=== PATIENT | male | born 1940 | race Caucasian/White ===

== ENCOUNTER → 2016-11-21 | Outpatient (CLI) | payer MEDICARE, BC ==
[2016-11-21 15:52] LABS: BLOOD, URINE TRACE-INTACT (NEGATIVE); COLOR,URINE YELLOW (YELLOW); LEUKOCYTE ESTERASE ,URINE NEGATIVE (NEGATIVE); NITRITE,URINE NEGATIVE (NEGATIVE); UROBILINOGEN,URINE 0.2 EU/DL (NORMAL)
== END ==
LOC: EDBD 15:29 → LAB 15:29
PROVIDERS: ATTEND Urology
DX: R35.0 Frequency of micturition (principal)
CPT/HCPCS: 81003

== ENCOUNTER 2017-11-27 06:34 | Observation (INO) ==
[2017-11-27] MEDS ORDERED: SALINE FLUSH 10ml SYRINGE IVF PRN (06:42)
--- NOTE | 2017-11-27 06:54 | Emergency Department Report ---
General Adult HPI - General Chief complaint: Chest Pain Stated complaint: chest pain Time Seen by Provider: 11/27/17 06:42 Source: patient, EMS Mode of arrival: EMS Limitations: no limitations - History of Present Illness HPI narrative: 77-year-old male presents to the emergency department with the chief complaint of chest pain. Patient noted onset of discomfort in his back which radiated anteriorly to his chest and settled permanently in the anterior chest upon arrival to the emergency department. He was given sublingual nitroglycerin and fentanyl by EMS prior to arrival to the emergency department. He had no change with the nitroglycerin and the fentanyl improved his symptoms. He describes the pain as moderate. Pain is sharp and stabbing. No radiation other than those listed as above. No other complaints or associated symptoms. He was at home when his symptoms began. Symptoms have been persistent in nature since onset. Symptoms began at approximately 0530 today. - Related Data Home Medications Medication Instructions Recorded Confirmed Aspirin Chewable [ASA] 81 mg PO DAILY 11/27/17 11/27/17 Cyclobenzaprine [Flexeril] 1 tab PO TID 11/27/17 11/27/17 Meloxicam 15 mg PO DAILY 11/27/17 11/27/17 Sertraline [Zoloft] 50 mg PO BID 11/27/17 11/27/17 Allergies Allergy/AdvReac Type Severity Reaction Status Date / Time No Known Allergies Allergy Verified 11/27/17 10:17 Review of Systems Constitutional: Denies: fever, chills Eyes: Denies: eye pain, eye discharge ENT: Denies: ear pain, throat pain Cardiovascular: Reports: chest pain. Denies: palpitations Respiratory: Denies: cough, dyspnea Gastrointestinal: Reports: nausea. Denies: abdominal pain, vomiting, diarrhea Genitourinary: Denies: urgency, dysuria Musculoskeletal: Reports: back pain. Denies: arthralgia Integumentary: Denies: erythema, rash Neurological: Denies: headache, numbness, paresthesias Psychiatric: Denies: anxiety, depression Endocrine: Denies: polydipsia, polyuria Hematological/Lymphatic: Denies: easy bruising, lymphadenopathy Allergic/Immunologic: Denies: urticaria, itchy eyes [facility] Patient Stated Medical History Angina Yes Gastroesophageal Reflux Yes Disease Osteoarthritis Yes Surgical History: Multiple orthopedic surgeries Family History: Reviewed and Noncontributory. - Social History Smoking status: Never smoker Substance use type: does not use Alcohol intake frequency: does not drink Physical Exam - Limitations Limitations: no limitations - General General appearance: alert, in no apparent distress - Normal Exams: Head:: Normocephalic without trauma Eyes:: Pupils are PERRLA w/ EOMI, No scleral icterus, irritation, or foreign bodies noted ENMT:: No facial trauma, nasal exudates, pharyngeal erythema, or exudates are noted Dental: No fractured, loose, or missing teeth noted Neck:: Full range of motion, without adenopathy, JVD, bruits or thyromegaly Chest/Respirations:: Clear all escalona, with good airflow, and symmetry bilaterally Cardiovascular:: Regular rate and rhythm, without murmur or gallop, Pulses 2+ all extremities, capillary refill, <2 seconds all extremities Abdomen:: Bowel sounds positive, soft, non-tender, non-distended, no hepatosplenomegaly, masses or bruits noted Lymphatic:: No lymphadenopathy, or lymphedema noted Musculoskeletal:: No tenderness, or deformity noted, good range of motion, all extremities Integumentary:: No rashes, hives, or bruising noted, hair and nails, without abnormality Neurological:: Patient is alert, and oriented, cranial nerves, motor/sensory/ cerebellar, exams w/o gross deficits, to observation Course Vital Signs Temperature 98.7 F 11/27/17 06:35 Pulse Rate 61 11/27/17 06:35 Respiratory Rate 17 11/27/17 06:35 Blood Pressure 146/76 H 11/27/17 06:35 Pulse Oximetry 95 11/27/17 06:35 Temperature 98.7 F 11/27/17 06:35 Pulse Rate 61 11/27/17 09:00 Respiratory Rate 14 11/27/17 08:30 Blood Pressure 121/79 11/27/17 09:00 Pulse Oximetry 95 11/27/17 09:00 Medical Decision Making - [facility] Narrative Medical decision making narrative: Labs/imaging were discussed in detail with the patient and family and questions are answered. Patient was given gentle IV hydration. He was given sublingual nitroglycerin without improvement of his pain. He was given parental narcotic and antiemetic medication intravenously with improvement of symptoms. He was given aspirin 324 mg by mouth [address] chest was obtained and unremarkable. He is discussed with the serology teacher on-call Dr. Alvarez who agrees to admit the patient to his service. Patient is admitted to the service of cardiology in improved condition. No further orders from accepting physician who is in agreement with the current plan of management. Patient and family are in agreement with the current plan of management. - Differential Diagnosis ACS, Pneumothorax, aortic dissection, PE - Lab Data Result diagrams: 11/27/17 06:51 11/27/17 06:51 Lab Results 11/27/17 11/27/17 Range/Units 06:51 06:51 WBC 5.8 (4.5-11.0) T/MM3 RBC 5.40 (4.50-5.90) M/MM3 Hgb 15.5 (13.5-17.5) GM/DL Hct 47.4 (41-53) % MCV 87.8 (80-100) UM3 MCH 28.7 (26-34) UUG MCHC 32.7 (31-37) GM/DL RDW Std Deviation 51.9 H (36.9-50.2) FL Plt Count 103 L (130-400) T/MM3 MPV 11.8 (9.4-12.4) UM3 Immature Gran % (Auto) 0.2 (0.0-0.5) % Neut % (Auto) 64.4 (33-66) % Lymph % (Auto) 25.5 (23-45) % [place] % (Auto) 6.3 (0-9.0) % Eos % (Auto) 3.3 (0-4) % Baso % (Auto) 0.3 (0-2) % Neut # (Auto) 3.7 (1.8-7.7) T/MM3 Lymph # (Auto) 1.5 (1-4.8) T/MM3 [place] # (Auto) 0.4 (0-0.8) T/MM3 Eos # (Auto) 0.2 (0-0.5) T/MM3 Baso # (Auto) 0.0 (0-0.2) T/MM3 Abs Immat Gran (auto) 0.01 (0.00-0.03) T/MM3 Turbidity < 20 (0-20) Sodium 146 H (134-144) MEQ/L Potassium 4.2 (3.6-5) MEQ/L Chloride 106 (98-107) MEQ/L Carbon Dioxide 26 (22-30) MEQ/L Anion Gap 14 (5-15) meq/L BUN 22.0 H (9-20) MG/DL Creatinine 0.8 (0.8-1.5) mg/dL GFR Calculation 93 BUN/Creatinine Ratio 28 H (6-26) RATIO Glucose 134 H (75-110) MG/DL Calculated Osmolality 286 H (261-280) MOSM/KG Calcium 10.1 (8.4-10.2) MG/DL Total Bilirubin 0.70 (0.20-1.30) MG/DL Icterus Index < 2 (0-7) AST 60 H (17-59) U/L ALT 31 (1-50) U/L Alkaline Phosphatase 110 (38-126) U/L Troponin I < 0.012 (0-0.12) ng/ml Total Protein 7.4 (6.3-8.2) g/dL Albumin 4.5 (3.5-5.0) g/dL Globulin 2.9 (2.4-3.6) G/DL Albumin/Globulin Ratio 1.6 (1.1-2.2) RATIO Specimen Hemolysis < 15.0 (0-25) - Radiology Data CXR - No acute processes. CTA Aorta - No acute processes. - EKG Data EKG #1 EKG results narrative: Sinus bradycardia. 56 bpm. No STEMI. Disposition Clinical Impression: Chest pain Qualifiers: Chest pain type: unspecified Qualified Code(s): R07.9 - Chest pain, unspecified Disposition: 02 To [facility] Condition: Stable Time of Disposition: 08:30 (Admit. Dr. Alvarez. ) - Seen By: physician
--- OUTSIDE RECORDS SUMMARY | 2017-11-27 07:08 | External Medical Summary | Continuity of Care Document ---
:1940 Author Organization Via [facility] Allergies Active Description Code Type Severity Reaction Onset Reported/ Identified Relationship Clinical to Patient Status Yes No Known Drug 03/22/2012 Allergies Aller gy Yes No Known Drug N/A N/A 03/22/2012 Allergies Aller gy Yes No Known Drug 03/22/2012 Drug Aller Allergies gy Yes No Known Drug N/A N/A 03/22/2012 Drug Aller Allergies gy Yes No Known Food 03/22/2012 Food Aller Allergies gy Yes No Known Food N/A N/A 03/22/2012 Food Aller Allergies gy Yes No Known NKMA N/A N/A 03/07/2016 Medication Allergies Yes No Known Drug Unknown N/A 11/21/2016 Drug Allergy Aller gy Yes No Known Drug Unknown N/A 11/21/2016 Drug Aller Category gy Allergy Yes No Known Envir Unknown N/A 11/21/2016 Environment onmen Allergy mckayla Aller gy Yes No Known Food Unknown N/A 11/21/2016 Food Allergy Aller gy Medications Medication Packaging Start Stop Route Dosage Sig Date Date 03/08/20 Oral 15 mg 15 meloxicam(meloxicam 6 16 mg, Oral, Daily, ) 0 Refill(s) 03/19/20 Oral 100 mg 100 sertraline(sertrali 6 16 mg, Oral, qAM, 0 ne) Refill(s) 03/19/20 Oral 81 mg 81 aspirin(aspirin) 6 16 mg, Oral, Daily, 0 Refill(s) 03/08/20 Oral 10 mg 10 cyclobenzaprine(cyc 6 16 mg, Oral, TID, 0 lobenzaprine) Refill(s) 03/19/20 Oral 5 mg 5 finasteride(finaste 6 16 mg, Oral, Daily, ride) 0 Refill(s) 03/07/20 Oral 1--2 HYDROcodone-acetami 6 16 tabs, Oral, nophen([place] 5 q4hr, PRN: Pain mg-325 mg oral Moderate (4-6) tablet range dose) 2 mL 03/07/20 IV Push 4 mg 4 ondansetron(Zofran) 6 16 mg=2 mL, IV Push, q6hr, PRN: Nausea or Vomiting Sodium 1,000 mL 03/07/20 IV 75 Chloride 6 16 mL/hr, IV 0.9%(sodium chloride 0.9% 1,000 mL) 0.5 mL 03/07/20 IV Push 0.5 mg 0.5 HYDROmorphone(Dilau 6 16 mg=0.5 mL, IV did) Push, q2hr, PRN: Pain Severe (7-10) 0.5 mL 03/07/20 IV Push 0.5 mg 0.5 HYDROmorphone(Dilau 6 16 mg=0.5 mL, IV did) Push, Once 03/11/20 Oral 1,500 mg acetaminophen(aceta 6 16 1,500 mg, Oral, minophen) BID, PRN: as needed for pain, 0 Refill(s) 1,000 mL 03/07/20 IV 10 Lactated Ringers 6 16 mL/hr, IV Injection(Lactated Ringers 1,000 mL) 1 mL 03/07/20 IV Push 50 mcg 50 fentaNYL(Sublimaze) 6 16 mcg=1 mL, IV Push, Once 03/19/20 Oral 50 mg 50 sertraline(sertrali 6 16 mg, Oral, qPM, 0 ne) Refill(s) 1 tabs 03/19/20 Oral 10 mg 10 donepezil(donepezil 6 16 mg=1 tabs, Oral, 10 mg oral tablet) Daily, 0 Refill(s) 1 caps 03/19/20 Oral 0.4 mg 0.4 tamsulosin(tamsulos 6 16 mg=1 caps, Oral, in 0.4 mg oral Daily, 0 capsule) Refill(s) 1 tabs 08/25/201 08/29/20 Oral 50 mg 50 sertraline(sertrali 6 16 mg=1 tabs, Oral, ne) Bedtime (once a day) 1 tabs 03/11/20 Oral 5 mg 5 finasteride(finaste 6 16 mg=1 tabs, Oral, ride) Daily 1 caps 03/11/20 Oral 0.4 mg 0.4 tamsulosin(tamsulos 6 16 mg=1 caps, Oral, in) Daily 1 tabs 03/11/20 Oral 100 mg 100 sertraline(sertrali 6 16 mg=1 tabs, Oral, ne) qAM 1 tabs 03/11/20 Oral 10 mg 10 donepezil(donepezil 6 16 mg=1 tabs, Oral, ) Bedtime (once a day) 2 tabs 03/08/20 Oral 2 HYDROcodone-acetami 6 16 tabs, Oral, nophen([place] 5 q4hr, PRN: Pain mg-325 mg oral Moderate (4-6) tablet) Sodium 1,000 mL 03/09/20 IV 80 Chloride 6 16 mL/hr, IV 0.9%(sodium chloride 0.9% 1,000 mL) 1 mL 03/10/20 IV Push 1 mg 1 HYDROmorphone(Dilau 6 16 mg=1 mL, IV did) Push, q2hr, PRN: Pain - Breakthrough 0.4 mL 03/07/20 IV Push 0.4 mg 0.4 HYDROmorphone([place]ilau 6 16 mg=0.4 mL, IV did) Push, q5min, PRN: Pain 1 tabs 03/11/20 Oral 10 mg 10 metoclopramide(Regl 6 16 mg=1 tabs, Oral, an) q6hr, PRN: Nausea or Vomiting 1 mL 03/10/20 IV Push 2 mg 2 morphine(morphine) 6 16 mg=1 mL, IV Push, q2hr, PRN: Pain Severe (7-10) 2 mL 03/11/20 IV Push 4 mg 4 ondansetron(Zofran) 6 16 mg=2 mL, IV Push, q6hr, PRN: Nausea or Vomiting 20 mL 03/08/20 IV Push 2 g 2 ceFAZolin(ceFAZolin 6 16 g=20 mL, IV ) Push, q8hr 1 tabs 03/11/20 Oral 10 mg 10 rivaroxaban(Xarelto 6 16 mg=1 tabs, Oral, ) Daily 2 tabs 03/08/20 Oral 2 HYDROcodone-acetami 6 16 tabs, Oral, nophen([place]asgow 7.5 q4hr, PRN: Pain mg-325 mg oral Moderate (4-6) tablet) 2 tabs 03/10/20 Oral 2 HYDROcodone-acetami 6 16 tabs, Oral, nophen([place] 10 q4hr, PRN: Pain mg-325 mg oral Moderate (4-6) tablet) 1 caps 03/19/20 Oral 100 mg 100 docusate(docusate 6 16 mg=1 caps, Oral, sodium 100 mg oral BID, 0 Refill(s) capsule) 1 tabs 03/19/20 Oral 10 mg 10 rivaroxaban(Xarelto 6 16 mg=1 tabs, Oral, 10 mg oral tablet) Daily, Give daily for 20 days post hospital discharge for DVT prevention, 0 Refill(s) 03/11/20 Oral 1-2 HYDROcodone-acetami 6 16 tabs, Oral, nophen([place] 10 q4hr, not to mg-325 mg oral exceed 8 tablet) tablets/24 hours: give with food to prevent nausea, PRN: Pain Moderate (4-6), 0 Refill(s) 1 supp 03/19/20 Rectal 10 mg 10 bisacodyl(Dulcolax 6 16 mg=1 supp, Laxative 10 mg Rectal, Once, rectal suppository) PRN: Constipation, 0 Refill(s) 0.5 mL 03/08/20 IV Push 0.5 mg 0.5 HYDROmorphone(HYDRO 6 16 mg=0.5 mL, IV morphone) Push, Once 2 tabs 03/11/20 Oral 650 mg 650 acetaminophen(aceta 6 16 mg=2 tabs, Oral, minophen) q4hr, PRN: Pain Mild (1-3) 2 tabs 03/19/20 Oral 650 mg 650 acetaminophen(aceta 6 16 mg=2 tabs, Oral, minophen 325 mg q4hr, PRN: Pain oral tablet) Mild (1-3), 0 Refill(s) 03/19/20 Oral 1-2 HYDROcodone-acetami 6 16 tabs, Oral, nophen([place] 10 q4hr, not to mg-325 mg oral exceed 6 tablet) tablets/24 hours; give with food to prevent nausea, 30 tabs, 0 Refill(s) 1 caps Oral 100 mg 100 docusate(Colace) 6 mg=1 caps, Oral, BID 1 tabs Oral 4 mg 4 ondansetron(Zofran) 6 mg=1 tabs, Oral, q6hr, PRN: Nausea 1 packets Oral 17 g 17 polyethylene glycol 6 g=1 packets, 3350(MiraLax) Oral, Daily, PRN: Constipation calcium 1 tabs Oral 500 mg 500 carbonate(Tums) 6 mg=1 tabs, Oral, q4hr, PRN: GERD/Heartburn 1 tabs Oral 25 mg 25 diphenhydrAMINE(Pablito 6 mg=1 tabs, Oral, adryl) Bedtime (once a day), PRN: Insomnia 1 tabs Oral 8.6 mg 8.6 senna(Senokot) 6 mg=1 tabs, Oral, Daily, PRN: Constipation 2 tabs 03/11/20 Oral 650 mg 650 acetaminophen(aceta 6 16 mg=2 tabs, Oral, minophen) q4hr, PRN: Pain Mild (1-3) 1 tabs Oral 5 mg 5 finasteride(finaste 6 mg=1 tabs, Oral, ride) Bedtime (once a day) 1 tabs Oral 10 mg 10 donepezil(donepezil 6 mg=1 tabs, Oral, ) Bedtime (once a day) 1 tabs Oral 81 mg 81 aspirin(aspirin) 6 mg=1 tabs, Oral, Bedtime (once a day) 2 tabs 03/11/20 Oral 2 HYDROcodone-acetami 6 16 tabs, Oral, nophen([place] 10 q4hr, PRN: Pain mg-325 mg oral Moderate (4-6) tablet range dose) 1 tabs Oral 100 mg 100 sertraline(sertrali 6 mg=1 tabs, Oral, ne) qAM 1 tabs 03/31/20 Oral 10 mg 10 rivaroxaban(Xarelto 6 16 mg=1 tabs, Oral, ) Bedtime (once a day) 1 tabs Oral 50 mg 50 sertraline(sertrali 6 mg=1 tabs, Oral, ne) Bedtime (once a day) 1 caps Oral 0.4 mg 0.4 tamsulosin(Flomax) 6 mg=1 caps, Oral, Bedtime (once a day) 1 tabs 05/10/20 Oral 1 HYDROcodone-acetami 6 16 tabs, Oral, nophen([place] 7.5 q4hr, PRN: Pain mg-325 mg oral Moderate (4-6) tablet) ferrous 1 tabs Oral 325 mg 325 sulfate(ferrous 6 mg=1 tabs, Oral, sulfate) BIDWM 1 tabs Oral 10 mg 10 donepezil(donepezil 6 mg=1 tabs, Oral, 10 mg oral tablet) Bedtime (once a day), 30 tabs, 0 Refill(s) 1 tabs 03/26/20 Oral 1 HYDROcodone-acetami 6 16 tabs, Oral, nophen([place] 7.5 q4hr, for 7 mg-325 mg oral days, PRN: Pain tablet) Moderate (4-6), 42 tabs, 0 Refill(s) 1 tabs Oral 5 mg 5 finasteride(finaste 6 mg=1 tabs, Oral, ride 5 mg oral Bedtime (once a tablet) day), 30 tabs, 0 Refill(s) 1 tabs Oral 81 mg 81 aspirin(aspirin 81 6 mg=1 tabs, Oral, mg oral delayed Bedtime (once a release tablet) day), 0 Refill(s) 2 tabs Oral 650 mg 650 acetaminophen(aceta 6 mg=2 tabs, Oral, minophen 325 mg q4hr, PRN: Other oral tablet) (See Comment), 0 Refill(s) 1 caps Oral 100 mg 100 docusate(Colace 100 6 mg=1 caps, Oral, mg oral capsule) BID, 0 Refill(s) 1 tabs 04/18/20 Oral 50 mg 50 sertraline(sertrali 6 16 mg=1 tabs, Oral, ne 50 mg oral Bedtime (once a tablet) day), for 30 days, two tabs in the a.m and one tab at bedtime, 90 tabs, 0 Refill(s) 1 tabs 03/31/20 Oral 10 mg 10 rivaroxaban(Xarelto 6 16 mg=1 tabs, Oral, 10 mg oral tablet) Bedtime (once a day), for 12 days, 12 tabs, 0 Refill(s) 1 caps 03/26/20 Oral 0.4 mg 0.4 tamsulosin(Flomax 6 16 mg=1 caps, Oral, 0.4 mg oral Bedtime (once a capsule) day), for 7 days, 7 caps, 0 Refill(s) ferrous 1 tabs Oral 325 mg 325 sulfate(ferrous 6 mg=1 tabs, Oral, sulfate 325 mg (65 BIDWM, 60 tabs, mg elemental iron) 0 Refill(s) oral delayed release tablet) 1 tabs Oral 8.6 mg 8.6 senna(Senokot 8.6 6 mg=1 tabs, Oral, mg oral tablet) Daily, PRN: Constipation, 0 Refill(s) 1 packets Oral 17 g 17 polyethylene glycol 6 g=1 packets, 3350(MiraLax) Oral, Daily, PRN: Constipation, 0 Refill(s) Tablet 11/22/19 81 mg take Aspir-81 81 mg 7 17 1 (one) by Oral tablet,delayed route daily release Tablet 1 mg take finasteride 1 mg 7 1 (one) Tablet tablet by Oral route daily Blister 11/22/19 50 mg take sertraline 50 mg 7 17 1 (one) Tablet tablet by Oral route daily Blister 11/22/19 15 mg take meloxicam 15 mg 7 17 1 (one) Tablet tablet by Oral route daily Motrin Packet 10/23/19 200 mg take IB 200 mg tablet 8 18 1 (one) Tablet by Oral route daily Blister 10/23/19 20 mg take benazepril 20 mg 8 18 1 (one) Tablet tablet by Oral route daily Tablet 5 mg take cyclobenzaprine 5 8 1 (one) Tablet mg tablet by Oral route daily ASA PO 81 mg 8 DAILY PO 15 mg Meloxicam 8 DAILY Zoloft PO 100 mg BID 8 PO 10 mg TID Flexeril 8 Problems Date Dx Attending Type Code Diagnosis Diagnosed By Coded 03/22/2012 Vargas FIGUEROA, Georges 719.46 JOINT PAIN-LOWER LEG 03/22/2012 Georges Kaye MD Final 924.11 CONTUSION OF KNEE 03/22/2012 Georges Kaye MD Admitting 959.7 LOWER LEG INJURY [facility] 03/22/2012 Georges Kaye MD External E000.8 EXT CAUSE STATUS [facility] 03/22/2012 Georges Kaye MD External E029.9 ACTIVITY [facility] 03/22/2012 Georges Kaye MD External E849.0 HOME ACCIDENTS 03/22/2012 Georges Kaye MD External E885.9 FALL FROM TRIPPING [facility] 07/06/2013 Sobeida FIGUEROA, Final 873.0 OPEN WOUND OF SCALP Trevor S 07/06/2013 Sobeida FIGUEROA, 873.8 OPEN WOUND OF HEAD Trevor S [facility] 07/06/2013 Sobeida FIGUEROA, Final 959.01 HEAD INJURY NOS Trevor S 07/06/2013 Sobeida FIGUEROA, External E849.0 HOME ACCIDENTS Trevor S 07/06/2013 Sobeida FIGUEROA, External E920.8 ACC-CUTTING INSTR Trevor S [facility] 07/06/2013 Sobeida FIGUEROA, Final V06.1 DTP/DTAP VACCINE Trevor S 03/07/2016 Dart,, Norbert Admitting S72.009A 03/19/2016 Dart,, Norbert Final D62 Acute posthemorrhagic anemia 03/19/2016 Dart,, Norbert Final D69.6 Thrombocytopenia, unspecified 03/19/2016 Dart,, Norbert Final F32.9 Major depressive disorder, single episode, unspecified 03/19/2016 Dart,, Norbert Admitting M25.551 Pain in right hip 03/19/2016 Dart,, Norbert Final N40.0 Enlarged prostate without lower urinary tract symptoms 03/19/2016 Dart,, Norbert Final R00.1 Bradycardia, unspecified 03/19/2016 Dart,, Norbert Final S50.311A Abrasion of right elbow, initial encounter 03/19/2016 Dart,, Norbert Final S72.011A Unspecified intracapsular fracture of right femur, initial encounter for cl 03/19/2016 Dart,, Norbert Final S80.211A Abrasion, right knee, initial encounter 03/19/2016 Dart,, Norbert Final W01.0XXA Fall on same level from slipping, tripping and stumbling without subsequent 03/19/2016 Dart,, Norbert Final Y92.[address] in single-family (private) house as the place of occurrence of 03/19/2016 Dart,, Norbert Final Y99.0 Civilian activity done for income or pay 04/05/2016 F S72.031A Displaced midcervical fracture of right femur, initial encounter for closed fracture 05/14/2016 F S72.031D Displaced midcervical fracture of right femur, subsequent encounter for closed fracture with routine healing 08/27/2016 F M25.551 Pain in right hip 08/27/2016 F S72.031D Displaced midcervical fracture of right femur, subsequent encounter for closed fracture with routine healing 11/25/2016 ERON FARR N40.3 Nodular prostate YORDAN, Marley with lower urinary ERON H tract symptoms 11/25/2016 ERON FARR R35.0 Frequency of Marley FARR micturition ERON H 11/25/2016 ERON FARR R35.1 Nocturia GILBAUGH, H ERON H 11/25/2016 ERON FARR Z80.42 Family history of GILBAUGH, H malignant neoplasm ERON H of prostate 01/16/2017 ERON FARR N40.3 Nodular prostate GILBAUGH, H with lower urinary ERON H tract symptoms 01/16/2017 ERON FARR R35.0 Frequency of GILBAUGH, H micturition ERON H 01/16/2017 ERON FARR R35.1 Nocturia GILBAUGH, H ERON H 01/16/2017 ERON FARR R39.15 Urgency of urination GILBAUGH, H ERON H 01/16/2017 ERON FARR Z80.42 Family history of GILBAUGH, H malignant neoplasm ERON H of prostate 03/07/2017 ERON FARR N40.3 Nodular prostate GILBAUGH, H with lower urinary ERON H tract symptoms 03/07/2017 ERON FARR R35.0 Frequency of GILBAUGH, H micturition ERON H 03/07/2017 ERON FARR R35.1 Nocturia GILBAUGH, H ERON H 03/07/2017 ERON FARR R39.15 Urgency of urination GILBAUGH, H ERON H 03/25/2017 ERON FARR 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, H and reflux uropathy ERON H 03/25/2017 ERON FARR N40.1 Benign prostatic GILBAUGH, H hyperplasia with ERON H lower urinary tract symptoms 03/26/2017 ERON FARR N40.1 Benign prostatic MARK COBOSALD H hyperplasia with L lower urinary tract symptoms 03/26/2017 ERON FARR R35.0 Frequency of CESILIA COBOS H micturition L 03/26/2017 ERON FARR Z09 Encounter for PAPITO CESILIA H follow-up L examination after completed treatment for conditions other than malignant neoplasm 08/12/2017 ERON FARR N13.8 Other obstructive TEOBAUGH, H and reflux uropathy ERON 08/12/2017 ERON FARR N40.1 Benign prostatic GILBAUGH, H hyperplasia with ERON H lower urinary tract symptoms 08/12/2017 ERON FARR R35.0 Frequency of GILBAUGH, H micturition [facility] 08/12/2017 ERON FARR R35.1 Nocturia GILBAUGH, H ERON 08/12/2017 ERON FARR R39.12 Poor urinary stream TEOBAUGH, H ERON H 08/12/2017 ERON FARR R39.15 Urgency of urination TEOBAUGH, H ERON 09/17/2017 ERON FARR 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, H and reflux uropathy [facility] 09/17/2017 ERON FARR 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, H obstruction [facility] 09/17/2017 ERON FARR N39.41 Urge incontinence [facility], H ERON 09/17/2017 ERON FARR N40.1 Benign prostatic GILBAUGH, H hyperplasia with ERON Roach lower urinary tract symptoms 09/17/2017 ERON FARR N13.8 Other obstructive NABBOUT, H and reflux uropathy [facility] 09/17/2017 ERON FARR09 Encounter for NABBOUT, H follow-up [facility] examination after completed treatment for conditions other than malignant neoplasm 09/17/2017 ERON FARR Z46.6 Encounter for NABBOUT, H fitting and YEN adjustment of urinary device 11/06/2017 ERON FARR 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, H and reflux uropathy ERON 11/06/2017 ERON FARR N40.1 Benign prostatic TEOBAUGH, H hyperplasia with ERON Roach lower urinary tract symptoms 11/06/2017 ERON FARR R35.0 Frequency of GILBAUGH, H micturition ERON 11/06/2017 ERON FARR R39.15 Urgency of urination TEOBAUGH, H [facility] 11/06/2017 ERON FARR Z09 Encounter for GILBAUGH, H follow-up ERON Roach examination after completed treatment for conditions other than malignant neoplasm Procedures Code Description Performed By Performed On Replacement of 03/07/2016 [id number] Right Hip Joint, Femoral Surface with Synthetic Substitute, 58081 Pelvis AP Thang Ramos 04/05/2016 52010 Hip 1V X-Table Thang Ramos 04/05/2016 Lat 28346 Pelvis AP Norbert Santoyo 05/14/2016 95402 Hip 1V X-Table Norbert Santoyo R 05/14/2016 Lat 61056 Pelvis w/Hip Uni Norbert Santoyo R 08/27/2016 1V 63231 OFFICE OR OTHER ERON FARR 11/25/2016 OUTPATIENT VISIT FOR THE EVALUATION AND MANAGEMENT OF ANEW PATIENT, WHICH REQUIRES T 18871 OFFICE OR OTHER ERON FARR 12/17/2016 OUTPATIENT VISIT FOR THE EVALUATION AND MANAGEMENT OF ANEW PATIENT, [place] T 14202 ERON FARR 01/16/2017 CYSTOURETHROSCOPY (SEPARATE PROCEDURE) 26026 ERON FARR 02/17/2017 CYSTOURETHROSCOPY (SEPARATE PROCEDURE) 25610 PERCUTANEOUS ERON FARR 03/07/2017 IMPLANTATION OF NEUROSTIMULATOR ELECTRODES; SACRAL NERVE(TRANSFORAMINAL PLACEMENT) 20466 CONTACT LASER ERON FARR 03/25/2017 VAPORIZATION WITH OR WITHOUT TRANSURETHRAL RESECTION [place] [address] POSTOPERATIVE CESILIA COBOS 03/26/2017 FOLLOW-UP VISIT, INCLUDED IN GLOBAL SERVICE 09025 PERCUTANEOUS ERON FARR 04/07/2017 IMPLANTATION OF NEUROSTIMULATOR ELECTRODES; SACRAL NERVE(TRANSFORAMINAL PLACEMENT) 25491 URINALYSIS, BY ERON FARR 08/12/2017 DIP STICK OR TABLET REAGENT FOR BILIRUBIN, GLUCOSE,HEMOGLOBIN, KETONES, LEUKOCYTES, N 00920 OFFICE OR OTHER ERON FARR 08/12/2017 OUTPATIENT VISIT FOR THE EVALUATION AND MANAGEMENT OF ANESTABLISHED PATIENT, WHICH R 74668 URINALYSIS, BY ERON FARR 08/29/2017 DIP STICK OR TABLET REAGENT FOR BILIRUBIN, GLUCOSE,HEMOGLOBIN, KETONES, LEUKOCYTES, N 96473 OFFICE OR OTHER ERON FARR 09/04/2017 OUTPATIENT VISIT FOR THE EVALUATION AND MANAGEMENT OF ANESTABLISHED [place], [place] R 55235 ERON FARR 09/17/2017 CYSTOURETHROSCOPY, WITH INJECTION(S) FOR CHEMODENERVATION OF THE BLADDER 26827 TRANSURETHRAL ERON FARR 09/17/2017 RESECTION OF BLADDER NECK (SEPARATE PROCEDURE) 62094 POSTOPERATIVE YEN MCCLAIN 09/17/2017 FOLLOW-UP VISIT, INCLUDED IN GLOBAL SERVICE 35689 ERON FARR 10/09/2017 CYSTOURETHROSCOPY, WITH INJECTION(S) FOR CHEMODENERVATION OF THE BLADDER 44477 TRANSURETHRAL ERON FARR 10/09/2017 RESECTION OF BLADDER NECK (SEPARATE PROCEDURE) 73287 URINALYSIS, BY ERON FARR 11/06/2017 DIP STICK OR TABLET REAGENT FOR BILIRUBIN, GLUCOSE,HEMOGLOBIN, KETONES, LEUKOCYTES, N 22905 POSTOPERATIVE ERON FARR 11/06/2017 FOLLOW-UP VISIT, INCLUDED IN GLOBAL SERVICE Results Test Result Range Basic Metabolic Panel (BMP) - 03/07/16 06:00 Anion Gap 9 NA 3-20 BUN 17 mg/dL 4-20 Calcium 9.6 mg/dL 8.6-10.0 Chloride 103 mEq/L 99-109 CO2 26 mEq/L 22-32 Creatinine 0.82 mg/dL 0.64-1.27 Glucose 132 mg/dL 70-100 Potassium 5.1 mEq/L 3.6-5.1 Sodium 138 mEq/L 136-144 eGFR - 03/07/16 06:00 eGFR >60 NA >60 CBC With Platelet and Differential - 03/07/16 06:00 Absolute Basophils 0.14 10*3 0.00-0.20 Absolute Eosinophils 0.07 10*3 0.00-0.50 Absolute Lymphocytes 1.01 10*3 0.80-3.30 Absolute Monocytes 0.43 10*3 0.30-1.00 Absolute Neutrophils 5.62 10*3 1.90-7.00 Bands 7 % 0-8 Basophils 2 % 0-2 Differential Reviewed NA Eosinophils 1 % 0-4 HCT 46.5 % 42.0-52.0 HGB 15.5 g/dL 14.0-18.0 Lymphocytes 14 % 20-46 MCH 29.4 pg 27.0-32.0 MCHC 33.3 g/dL 32.0-36.0 MCV 88.1 fL 82.0-99.0 Monocytes 6 % 4-11 MPV 11.0 fL 9.4-12.3 Neutrophils 71 % 51-75 Nucleated RBC Automated 0.0 /100 WBC Platelet Count 92 K/uL 150-400 RBC 5.28 10*6/uL 4.60-6.20 RDW 16.2 % 11.5-14.5 WBC 7.2 K/uL 4.8-10.8 Urinalysis with reflex microscopic - 03/07/16 06:15 Appearance Clear NA Bilirubin Negative NA Negative Blood Pos 1+ NA Negative Color Straw NA Glucose, Urine Negative Negative Ketones Negative Negative Leukocyte Esterase Negative NA Negative Nitrites Negative NA Negative pH 7.0 NA 5.0-8.0 Protein Negative NA Negative Specific [place] 1.005 NA 1.003-1.030 UA Collection type Clean Catch NA Urobilinogen Negative mg/dL <1.0 Urine Microscopic - 03/07/16 06:15 RBC, Urine 0 /HPF 0-2 WBC, Urine 0 /HPF 0-4 Glucose NPT - 03/07/16 08:01 Glucose NPT 110 mg/dL 70-100 Basic Metabolic Panel (BMP) - 03/08/16 05:08 Anion Gap 6 NA 3-20 BUN 13 mg/dL 4-20 Calcium 8.4 mg/dL 8.6-10.0 Chloride 101 mEq/L 99-109 CO2 28 mEq/L 22-32 Creatinine 1.05 mg/dL 0.64-1.27 Glucose 141 mg/dL 70-100 Potassium 4.3 mEq/L 3.6-5.1 Sodium 135 mEq/L 136-144 eGFR - 03/08/16 05:08 eGFR >60 NA >60 CBC With Platelet and Differential - 03/08/16 05:08 Absolute Basophils 0.03 10*3 0.00-0.20 Absolute Eosinophils 0.10 10*3 0.00-0.50 Absolute Lymphocytes 0.95 10*3 0.80-3.30 Absolute Monocytes 1.05 10*3 0.30-1.00 Absolute Neutrophils 7.51 10*3 1.90-7.00 Bands 14 % 0-8 Basophils 0 % 0-2 Differential Reviewed NA Eosinophils 1 % 0-4 HCT 35.9 % 42.0-52.0 HGB 11.7 g/dL 14.0-18.0 Lymphocytes 10 % 20-46 MCH 28.5 pg 27.0-32.0 MCHC 32.6 g/dL 32.0-36.0 MCV 87.6 fL 82.0-99.0 Monocytes 11 % 4-11 MPV 10.5 fL 9.4-12.3 Neutrophils 65 % 51-75 Nucleated RBC Automated 0.0 /100 WBC Platelet Count 93 K/uL 150-400 RBC 4.10 10*6/uL 4.60-6.20 RDW 16.2 % 11.5-14.5 WBC 9.5 K/uL 4.8-10.8 Glucose NPT - 03/08/16 21:08 Glucose NPT 146 mg/dL 70-100 Glucose NPT - 03/09/16 05:57 Glucose NPT 134 mg/dL 70-100 Basic Metabolic Panel (BMP) - 03/09/16 06:23 Anion Gap 6 NA 3-20 BUN 8 mg/dL 4-20 Calcium 8.1 mg/dL 8.6-10.0 Chloride 100 mEq/L 99-109 CO2 27 mEq/L 22-32 Creatinine 0.82 mg/dL 0.64-1.27 Glucose 145 mg/dL 70-100 Potassium 3.9 mEq/L 3.6-5.1 Sodium 133 mEq/L 136-144 eGFR - 03/09/16 06:23 eGFR >60 NA >60 CBC With Platelet and Differential - 03/09/16 06:23 Absolute Basophils 0.03 10*3 0.00-0.20 Absolute Eosinophils 0.13 10*3 0.00-0.50 Absolute Lymphocytes 0.71 10*3 0.80-3.30 Absolute Monocytes 0.09 10*3 0.30-1.00 Absolute Neutrophils 8.01 10*3 1.90-7.00 Basophils 0 % 0-2 Differential Reviewed NA Eosinophils 2 % 0-4 HCT 27.4 % 42.0-52.0 HGB 8.9 g/dL 14.0-18.0 Hypochromia Occasional NA Lymphocytes 8 % 20-46 MCH 28.2 pg 27.0-32.0 MCHC 32.5 g/dL 32.0-36.0 MCV 86.7 fL 82.0-99.0 Metamyelocytes 2 % 0-1 Monocytes 1 % 4-11 MPV 10.7 fL 9.4-12.3 Neutrophils 90 % 51-75 Nucleated RBC Automated 0.0 /100 WBC Platelet Count 97 K/uL 150-400 RBC 3.16 10*6/uL 4.60-6.20 RDW 16.0 % 11.5-14.5 WBC 8.9 K/uL 4.8-10.8 Hemoglobin A1C - 03/09/16 06:23 Hemoglobin A1C 5.5 % 4.1-5.6 Estimated Average Glucose - 03/09/16 06:23 Estimated Average Glucose 111.2 mg/dL Glucose NPT - 03/09/16 13:09 Glucose NPT 137 mg/dL 70-100 Glucose NPT - 03/09/16 17:01 Glucose NPT 186 mg/dL 70-100 Glucose NPT - 03/09/16 21:56 Glucose NPT 147 mg/dL 70-100 Glucose NPT - 03/10/16 05:38 Glucose NPT 146 mg/dL 70-100 CBC With Platelet and Differential - 03/10/16 10:12 Absolute Basophils 0.01 10*3 0.00-0.20 Absolute Eosinophils 0.07 10*3 0.00-0.50 Absolute Lymphocytes 0.64 10*3 0.80-3.30 Absolute Monocytes 0.28 10*3 0.30-1.00 Absolute Neutrophils 6.18 10*3 1.90-7.00 Basophils 0 % 0-2 Differential Reviewed NA Eosinophils 1 % 0-4 HCT 23.3 % 42.0-52.0 HGB 7.7 g/dL 14.0-18.0 Hypochromia Occasional NA Lymphocytes 9 % 20-46 MCH 28.6 pg 27.0-32.0 MCHC 33.0 g/dL 32.0-36.0 MCV 86.6 fL 82.0-99.0 Monocytes 4 % 4-11 MPV 10.2 fL 9.4-12.3 Neutrophils 87 % 51-75 Nucleated RBC Automated 0.0 /100 WBC Ovalocytes Occasional NA Platelet Count 92 K/uL 150-400 RBC 2.69 10*6/uL 4.60-6.20 RDW 16.0 % 11.5-14.5 WBC 7.1 K/uL 4.8-10.8 Basic Metabolic Panel (BMP) - 03/10/16 10:12 Anion Gap 5 NA 3-20 BUN 11 mg/dL 4-20 Calcium 8.4 mg/dL 8.6-10.0 Chloride 98 mEq/L 99-109 CO2 30 mEq/L 22-32 Creatinine 0.73 mg/dL 0.64-1.27 Glucose 151 mg/dL 70-100 Potassium 3.9 mEq/L 3.6-5.1 Sodium 133 mEq/L 136-144 eGFR - 03/10/16 10:12 eGFR >60 NA >60 Glucose NPT - 03/10/16 11:05 Glucose NPT 143 mg/dL 70-100 Glucose NPT - 03/10/16 15:25 Glucose NPT 152 mg/dL 70-100 Glucose NPT - 03/10/16 20:45 Glucose NPT 192 mg/dL 70-100 Glucose NPT - 03/11/16 05:27 Glucose NPT 157 mg/dL 70-100 L600.0100 - 11/21/16 15:43 SPECIMEN TYPE, URINE CLEANCATCH-MIDSTREAM COLOR,URINE YELLOW YELLOW TURBIDITY, URINE CLEAR CLEAR SPECIFIC GRAVITY,URINE 1.010 1.015-1.025 PH, URINE - DIPSTICK 5.5 5.0-8.0 LEUKOCYTE ESTERASE ,URINE NEGATIVE NEGATIVE NITRITE,URINE NEGATIVE NEGATIVE PROTEIN,URINE - DIPSTICK NEGATIVE NEGATIVE GLUCOSE, URINE - DIPSTICK NEGATIVE NEGATIVE KETONES,URINE - DIPSTICK NEGATIVE NEGATIVE UROBILINOGEN,URINE 0.2 EU/DL NORMAL BILIRUBIN,URINE - DIPSTICK NEGATIVE NEGATIVE BLOOD, URINE TRACE-INTACT NEGATIVE URINE MICRO MICROSCOPIC NOT IND. PSA, TOTAL - 12/18/16 04:11 PSA, TOTAL 0.3 ng/ml 0-4 L100.0050 - 09/11/17 11:37 WBC - WHITE BLOOD COUNT 5.4 T/MM3 4.5-11.0 RED BLOOD COUNT 5.21 M/MM3 4.50-5.90 HGB - HEMOGLOBIN 15.0 GM/DL 13.5-17.5 HCT - HEMATOCRIT 45.6 % 41-53 MEAN CORPUSCULAR VOLUME 87.5 UM3 80-100 MEAN CORPUSCULAR HGB 28.8 UUG 26-34 MEAN CORPUSCULAR HGB CONC(MCHC 32.9 GM/DL 31-37 RDW STANDARD DEVIATION 52.4 FL 36.9-50.2 PLT - PLATELET COUNT 102 T/MM3 130-400 MEAN PLATELET VOLUME 11.4 UM3 9.4-12.4 NEUTROPHILS % (AUTO) 73.8 % 33-66 LYMPHOCYTES % (AUTO) 17.6 % 23-45 MONOCYTES % (AUTO) 5.6 % 0-9.0 EOSINOPHILS % (AUTO) 2.2 % 0-4 BASOPHILS % (AUTO) 0.4 % 0-2 IMMATURE GRANULOCYTE % (AUTO) 0.4 % 0.0-0.5 NEUTROPHILS # (AUTO) 4.0 T/MM3 1.8-7.7 LYMPHOCYTES # (AUTO) 1.0 T/MM3 1-4.8 MONOCYTES # (AUTO) 0.3 T/MM3 0-0.8 EOSINOPHILS # (AUTO) 0.1 T/MM3 0-0.5 BASOPHILS # (AUTO) 0.0 T/MM3 0-0.2 IMMATURE GRANULOCYTE # (AUTO) 0.02 T/MM3 0.00-0.03 L200.0050 - 09/11/17 11:37 FUNGAL CULTURE. 0.9 MG/DL 0.8-1.5 FUNGAL CULTURE, BLOOD. 20 RATIO 6-26 NA - Sodium 145 MEQ/L 134-144 Potassium 4.1 MEQ/L 3.6-5 Chloride 104 MEQ/L 98-107 CO2 - Carbon Dioxide 30 MEQ/L 22-30 Anion Gap 11 MEQ/L 5-15 BUN - Blood Urea Nitrogen 18.0 MG/DL 9-20 Glomerular Filtration Rate 82 NRG Glucose 121 MG/DL 75-110 Osmolality,Calculated 282 MOSM/KG 261-280 Calcium 9.8 MG/DL 8.4-10.2 LICTERUS < 2 0-7 LHEMOLYSIS < 15 0-25 LTURBIDITY < 20 0-20 L750.7887 - 09/11/17 11:37 PSA, Diagnostic Total - AMS 0.8 ng/mL 0.0-6.5 URINALYSIS - 10/22/17 14:36 COLOR YELLOW NRG RBC * MODERATE NEGATIVE NITRITES NEGATIVE NEGATIVE LEUKOCYTE ESTERASE * SMALL NEGATIVE GLUCOSE NEGATIVE NEGATIVE BILIRUBIN NEGATIVE NEGATIVE KETONES NEGATIVE mg/dL NEGATIVE SPECIFIC GRAVITY 1.010 1.010 - 1.030 pH 6.0 5.0 - 8.0 PROTEIN NEGATIVE mg/dL NEGATIVE UROBILINOGEN 0.2 E.U./dL E.U./dL 0.2 E.U./dL URINE MICRO - 10/22/17 14:36 RBC 4-8 0-3/HPF NRG L100.0050 - 11/27/17 06:51 WBC - WHITE BLOOD COUNT 5.8 T/MM3 4.5-11.0 RED BLOOD COUNT 5.40 M/MM3 4.50-5.90 HGB - HEMOGLOBIN 15.5 GM/DL 13.5-17.5 HCT - HEMATOCRIT 47.4 % 41-53 MEAN CORPUSCULAR VOLUME 87.8 UM3 80-100 MEAN CORPUSCULAR HGB 28.7 UUG 26-34 MEAN CORPUSCULAR HGB CONC(MCHC 32.7 GM/DL 31-37 RDW STANDARD DEVIATION 51.9 FL 36.9-50.2 PLT - PLATELET COUNT 103 T/MM3 130-400 MEAN PLATELET VOLUME 11.8 UM3 9.4-12.4 NEUTROPHILS % (AUTO) 64.4 % 33-66 LYMPHOCYTES % (AUTO) 25.5 % 23-45 MONOCYTES % (AUTO) 6.3 % 0-9.0 EOSINOPHILS % (AUTO) 3.3 % 0-4 BASOPHILS % (AUTO) 0.3 % 0-2 IMMATURE GRANULOCYTE % (AUTO) 0.2 % 0.0-0.5 NEUTROPHILS # (AUTO) 3.7 T/MM3 1.8-7.7 LYMPHOCYTES # (AUTO) 1.5 T/MM3 1-4.8 MONOCYTES # (AUTO) 0.4 T/MM3 0-0.8 EOSINOPHILS # (AUTO) 0.2 T/MM3 0-0.5 BASOPHILS # (AUTO) 0.0 T/MM3 0-0.2 IMMATURE GRANULOCYTE # (AUTO) 0.01 T/MM3 0.00-0.03 Encounters ACCT No. Visit Discharge Status Pt. Type Provider Facility Loc./Unit Complaint Date/Time [id number] 07/06/2013 07/06/2013 DIS Emergency Sobeida [facility] 3 16:08:00 16:53:00 , [facility] on [facility] [id number] 03/22/2012 03/22/2012 DIS Emergency Kaye [facility] 5 13:53:00 15:26:00 Georges FIGUEROA [facility] on [facility] [id number] 09/11/2017 09/11/2017 DIS Outpatient RODRIGO FIGUEROA, Shrestha labs 37 11:17:00 11:18:00 [facility] [id number] 11/21/2016 11/21/2016 CLS Outpatient Fady [facility] 49 15:29:00 23:59:59 [facility] [id number] 11/27/2017 Document 37 06:28:00 Registrati on [id number] 11/06/2017 11/06/2017 CLS Outpatient YORDAN, 10:41:01 23:59:59 [facility] [id number] 03/07/2016 03/11/2016 DIS Inpatient Dart,, Via [facility] F6SE Fall - 39 04:13:00 12:24:00 [facility] right hip Hospital pain on [place] [id number] 03/20/2016 Document 1927 05:19:27 Registrati on [id number] 03/14/2016 Document 1658 05:16:58 Registrati on [id number] 03/12/2016 Document 1934 05:19:34 Registrati on [id number] 03/11/2016 Document 1608 05:16:08 Registrati on [id number] 03/09/2016 Document 1757 05:17:57 Registrati on [id number] 03/08/2016 Document 1724 05:17:24 Registrati on [id number] 03/08/2016 Document 1723 05:17:23 Registrati on [id number] 05/14/2016 Document 7 00:00:00 Registrati on [id number] 04/05/2016 Document 00:00:00 Registrati on [id number] 03/07/2016 Document 39 04:13:00 Registrati on
--- NOTE | 2017-11-27 07:56 | XRay Report ---
Indication: Mid chest pain this morning PROCEDURE: XR chest 1V: Encounter: Initial Comparison: None FINDINGS: The lungs are clear. There is no abnormal airspace opacity, pleural effusion or pneumothorax identified. The heart size, pulmonary vasculature and mediastinum are within normal limits. 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 IMPRESSION: No acute cardiopulmonary abnormality. .
[2017-11-27] MEDS ORDERED: NITROGLYCERIN 0.4 MG SUBLINGUAL TABLET SL ONE (08:06)
[2017-11-27] MEDS ORDERED: FentaNYL 100 MCG/2 ML INJECTION IVP ONE (08:23)
[2017-11-27] MEDS ORDERED: IOHEXOL 350mg/ml 100ml INJECTION ONE (09:15)
[2017-11-27] MEDS ORDERED: SALINE FLUSH 10ml SYRINGE ONE (09:15)
[2017-11-27] MEDS ORDERED: SALINE FLUSH 10ml SYRINGE IV PRN (09:17)
--- NOTE | 2017-11-27 09:55 | CT Scan Report ---
Indication: Pain PROCEDURE: CT angio pulm emboli / aorta: Encounter: Initial Technique: Axial CT angiography in the systemic arterial phase was performed through the chest, abdomen and pelvis with contrast. Noncontrast axial CT imaging through the chest, abdomen and pelvis was also performed. Coronal and sagittal MIP reconstructed images were created and reviewed. Three-dimensional surface shaded volume rendered imaging of the aorta and arterial vasculature was created by the technologist on a dedicated workstation under the direction of the interpreting radiologist and reviewed. Axial CT angiography through the chest was also performed in the pulmonary arterial phase with coronal and sagittal MIP reconstructed images created and reviewed. Automated Exposure Control and Iterative Reconstruction dose reducing techniques were utilized. Contrast: 99mL Omnipaque 350 Comparison: Chest x-ray from today Findings: CT angiogram of the chest for PE: Pulmonary arteries: Exam is diagnostic to the subsegmental pulmonary arterial level. No filling defects identified to suggest a pulmonary embolus. Other findings: Minimal subpleural atelectasis in the lower lobes. No pneumonia, pleural effusion or pneumothorax. No pulmonary nodules or masses. The central airways are patent. No axillary or mediastinal adenopathy. Heart size is normal. No pericardial effusion. The upper abdomen shows no acute findings. CTA chest with and without contrast for aorta: Noncontrast images show no evidence of intramural hematoma. Mild atherosclerotic plaque in the aortic arch. Postcontrast images show no evidence of aortic aneurysm or dissection. Great vessel origins are widely patent. CTA abdomen and pelvis with and without contrast for aorta: No evidence of aortic aneurysm or dissection. No evidence of hemodynamically significant aortic or arterial stenosis. Single bilateral renal artery origins appear normal. The visualized common, internal and internal iliac arteries are widely patent. The celiac, SMA and NATALY are widely patent. The arterial phase liver is unremarkable. Gallbladder is grossly normal. Fat-containing right upper abdominal ventral hernia with a 1 cm fascial defect seen on axial image #111. The spleen, pancreas and adrenal glands are within normal limits. The kidneys are normal. The visualized bladder is unremarkable. No evidence of a bowel obstruction. Bone windows show degenerative changes in the spine. Impression: CTA chest for PE: No pulmonary embolus or acute intrathoracic disease process seen. CTA chest for aorta: No evidence of acute aortic syndrome. CT abdomen pelvis with for aorta: No evidence of acute aortic syndrome. No acute abnormality seen. .
[2017-11-27] MEDS ORDERED: ASPIRIN 81 MG CHEWABLE TABLET PO ONE (09:56)
[2017-11-27 10:12] VITALS: BMI 30.2
--- NOTE | 2017-11-27 10:12 | Cardiology History & Physical ---
History of Present Illness Chief complaint: back pain, chest pain HPI: Jerardo is a 77 year old male who has no known history of cardiac disease who was in bed this morning when he began having back pain which progressed to chest pain. He denies radiation on pain, dyspnea, dizziness, lightheadedness, diaphoresis, or nausea. He moved to his lift chair and pain persisted. After about 1.5 hours he called EMS to transport him to the ED for evaluation. EKG showed slight ST depression in V4, sinus bradycardia and old inferior wall ID. Labs including Troponin were negative. CTA chest for PE and Aorta, and CT abdomen/pelvis showed no evidence of acute abnormality. Dr. Alvarez was contacted and he was admitted to observation for further evaluation. He is seen in his room on the surgical floor. He denies recent illness, fever, chills, cough, sore throat, cough, dyspnea, N/V/D, dysuria. Review of Systems - Constitutional Constitutional: Present: as per HPI - EENMT Eyes: Absent: change in vision Balance: Absent: vertigo Mouth/Throat: Present: as per HPI - Cardiovascular Cardiovascular: Present: chest pain. Absent: palpitations, syncope, dyspnea on exertion, orthopnea, edema, heart murmur Rhythm: Absent: abnormal rhythm Vascular: Absent: pedal edema - Respiratory Respiratory: Present: as per HPI - Gastrointestinal Gastrointestinal: Present: as per HPI - Genitourinary Genitourinary: Present: as per HPI - Integumentary/Breasts Integumentary: Absent: rash - Neurological Neurological: Absent: dizziness - Endocrine Endocrine: Absent: palpitations PFSH Gerd Osteoporosis Concussive syndrome Epistaxis WAYNE depression Surgical History: Rhinoplasty. partial hip replacement. hernia repair x3 Family History: Denies family history of heart disease, DM or CVA in first degree relatives - Social History Smoking status: Former smoker Substance use type: does not use Alcohol intake frequency: does not drink Housing: apartment Household members: spouse Current occupational status: retired Current residence: Apartment/Private Home Medications Home Medications Medication Instructions Recorded Confirmed Type Aspirin Chewable [ASA] 81 mg PO DAILY 11/27/17 11/27/17 History Cyclobenzaprine [Flexeril] 1 tab PO TID 11/27/17 11/27/17 History Meloxicam 15 mg PO DAILY 11/27/17 11/27/17 History Sertraline [Zoloft] 50 mg PO BID 11/27/17 11/27/17 History Allergies Allergy/AdvReac Type Severity Reaction Status Date / Time No Known Allergies Allergy Verified 11/27/17 10:17 Exam Vital signs: Temperature 98.7 F 11/27/17 06:35 Pulse Rate 60 11/27/17 08:15 Respiratory Rate 17 11/27/17 08:29 Blood Pressure 135/69 11/27/17 08:15 Pulse Oximetry 94 11/27/17 08:15 - Constitutional no acute distress, well nourished, cooperative - Routine HEENT Exam Head: Present: normocephalic ENT: Present: mucous membranes moist - Routine Neck Exam Absent: JVD, carotid bruit - Routine Chest/Breast/Axilla Exam Chest wall: Absent: tenderness - Routine Respiratory Exam Present: CTA bilaterally. Absent: rales, crackles - Routine Cardiovascular Exam Present: RRR, no murmur - Routine Abdominal Exam Present: soft, non tender - Routine Extremities Exam Present: no edema, pulses intact - Routine Skin Exam Present: intact, dry, warm - Routine Neurological Exam Present: alert, oriented X3 - Routine Psychiatric Exam Present: normal affect, normal thought process Results 11/27/17 06:51 11/27/17 06:51 - Imaging and Cardiology Imaging & Cardiology Narrative: Date of Exam: 11/27/17 Ordering Provider: Mick Resendiz DO Type of Exam(s): CT angio pulm emboli / aorta Reason for Exam(s): Pain Indication: Pain PROCEDURE: CT angio pulm emboli / aorta: Encounter: Initial Technique: Axial CT angiography in the systemic arterial phase was performed through the chest, abdomen and pelvis with contrast. Noncontrast axial CT imaging through the chest, abdomen and pelvis was also performed. Coronal and sagittal MIP reconstructed images were created and reviewed. Three-dimensional surface shaded volume rendered imaging of the aorta and arterial vasculature was created by the technologist on a dedicated workstation under the direction of the interpreting radiologist and reviewed. Axial CT angiography through the chest was also performed in the pulmonary arterial phase with coronal and sagittal MIP reconstructed images created and reviewed. Automated Exposure Control and Iterative Reconstruction dose reducing techniques were utilized. Contrast: 99mL Omnipaque 350 Comparison: Chest x-ray from today Findings: CT angiogram of the chest for PE: Pulmonary arteries: Exam is diagnostic to the subsegmental pulmonary arterial level. No filling defects identified to suggest a pulmonary embolus. Other findings: Minimal subpleural atelectasis in the lower lobes. No pneumonia, pleural effusion or pneumothorax. No pulmonary nodules or masses. The central airways are patent. No axillary or mediastinal adenopathy. Heart size is normal. No pericardial effusion. The upper abdomen shows no acute findings. CTA chest with and without contrast for aorta: Noncontrast images show no evidence of intramural hematoma. Mild atherosclerotic plaque in the aortic arch. Postcontrast images show no evidence of aortic aneurysm or dissection. Great vessel origins are widely patent. CTA abdomen and pelvis with and without contrast for aorta: No evidence of aortic aneurysm or dissection. No evidence of hemodynamically significant aortic or arterial stenosis. Single bilateral renal artery origins appear normal. The visualized common, internal and internal iliac arteries are widely patent. The celiac, SMA and NATALY are widely patent. The arterial phase liver is unremarkable. Gallbladder is grossly normal. Fat-containing right upper abdominal ventral hernia with a 1 cm fascial defect seen on axial image #111. The spleen, pancreas and adrenal glands are within normal limits. The kidneys are normal. The visualized bladder is unremarkable. No evidence of a bowel obstruction. Bone windows show degenerative changes in the spine. Impression: CTA chest for PE: No pulmonary embolus or acute intrathoracic disease process seen. CTA chest for aorta: No evidence of acute aortic syndrome. CT abdomen pelvis with for aorta: No evidence of acute aortic syndrome. No acute abnormality seen. 11/27/17 10:12 11/27/17 10:12 = = = = = = = = = = = = = = = = = = = = = = = = = = = = = = = = = = = = = = = = = = = = = = = = = = = = = = = = = = = Date of Exam: 11/27/17 Ordering Provider: Mick Resendiz DO Type of Exam(s): XR chest 1V Reason for Exam(s): Pain Indication: Mid chest pain this morning PROCEDURE: XR chest 1V: Encounter: Initial Comparison: None FINDINGS: The lungs are clear. There is no abnormal airspace opacity, pleural effusion or pneumothorax identified. The heart size, pulmonary vasculature and mediastinum are within normal limits. 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 IMPRESSION: No acute cardiopulmonary abnormality. EKG interpretations - EKG EKG results cardiology: sinus rhythm EKG shows: bradycardia - ID, pacemaker, normal Myocardial infarction: inferior ID (old age indeterminate) Hospital Course This is a general summary of the patient's hospital course. For more details refer to the complete medical record. Time spent with patient: 25 - 35 minutes Resuscitation Status: Full Code Assessment and Plan - Assessment and Plan (1) Chest pain Current visit: Yes Status: Acute Sternal chest pain, no accompanied symptoms or radiation. - EKG showed slight ST depression in V4, sinus bradycardia and old inferior wall ID. - Labs including Troponin were negative. - CTA chest for PE and Aorta, and CT abdomen/pelvis showed no evidence of acute abnormality. - Trend serial troponin levels - repeat EKG - 2D echo - lipid panel - Continue home Aspirin 81mg daily (2) Back pain Current visit: Yes Status: Chronic May have home Flexeril and Meloxicam as needed for pain
[2017-11-27] MEDS: CYCLOBENZAPRINE 10 MG PO SCH ×2 (16:28→21:23)
[2017-11-27] MEDS: SERTRALINE 100 MG PO SCH (21:23)
[2017-11-27 23:44] VITALS: O2SAT 95
[2017-11-28 07:01] VITALS: BP 111/80; RESP 16; TEMP 98.7
[2017-11-28 07:03] VITALS: PULSE 56
[2017-11-28] MEDS ORDERED: MELOXICAM 15 MG PO SCH (08:00)
[2017-11-28] MEDS: CYCLOBENZAPRINE 10 MG PO SCH (08:01)
[2017-11-28] MEDS: SERTRALINE 100 MG PO SCH (08:01)
--- NOTE | 2017-11-28 08:14 | Echocardiogram ---
DATE OF PROCEDURE November 27, 2017 This is a two-dimensional echo with spectral Doppler, color-flow and M-mode. It was obtained in a patient with chest pain. Left atrium is dilated. Left ventricle end-diastolic dimension is normal. Left ventricle wall thickness is increased. LV systolic function is normal with ejection fraction of 55%. Right atrium is normal. Right ventricle is normal. Aortic root dimension is increased. Mitral valve is morphologically normal with yamg-pu-dhbhkefd mitral regurgitation. Aortic valve is a trileaflet structure with no stenosis or insufficiency. Tricuspid valve shows ueme-br-qsjwtlnm tricuspid regurgitation with moderate pulmonary hypertension with estimated pulmonary artery systolic pressure of 44. Pulmonary valve shows no pulmonary insufficiency. There is no pericardial effusion. IMPRESSION 1. Left atrial dilation. 2. Left ventricular hypertrophy. 3. Normal LV systolic function with ejection fraction of 55%. 4. Mild aortic root dilation at 3.9 cm. 5. Utmd-so-zknhbybf mitral regurgitation. 6. Dymb-qs-rbthynwk tricuspid regurgitation with moderate pulmonary hypertension with estimated pulmonary artery systolic pressure of 44. MTDD
[2017-11-28] MEDS ORDERED: --POM--ASPIRIN 81 MG CHEWABLE TABLET PO SCH (09:00)
--- NOTE | 2017-11-28 10:17 | Discharge Summary ---
Discharge Information Date of admission: 11/27/17 09:17 Anticipated date of discharge: 11/28/17 Attending Physician: Lamont Alvarez MD Primary care physician: Camila Nagy MD - Discharge Diagnosis (1) Chest pain Status: Acute (2) Back pain Status: Chronic chest pain, back pain - Laboratory Labs: Laboratory Results - last 24 hr 11/27/17 11/27/17 11/27/17 06:51 13:24 17:54 Troponin I < 0.012 < 0.012 Triglycerides 167 H Cholesterol 165 LDL Cholesterol, Calc 75.6 VLDL Cholesterol 33.4 H HDL Cholesterol 56 Cholesterol/HDL Ratio 2.9 Specimen Hemolysis < 15 < 15 - Radiology Radiology: Date of Exam: 11/27/17 Ordering Provider: Mick Resendiz DO Type of Exam(s): CT angio pulm emboli / aorta Reason for Exam(s): Pain Indication: Pain PROCEDURE: CT angio pulm emboli / aorta: Encounter: Initial Technique: Axial CT angiography in the systemic arterial phase was performed through the chest, abdomen and pelvis with contrast. Noncontrast axial CT imaging through the chest, abdomen and pelvis was also performed. Coronal and sagittal MIP reconstructed images were created and reviewed. Three-dimensional surface shaded volume rendered imaging of the aorta and arterial vasculature was created by the technologist on a dedicated workstation under the direction of the interpreting radiologist and reviewed. Axial CT angiography through the chest was also performed in the pulmonary arterial phase with coronal and sagittal MIP reconstructed images created and reviewed. Automated Exposure Control and Iterative Reconstruction dose reducing techniques were utilized. Contrast: 99mL Omnipaque 350 Comparison: Chest x-ray from today Findings: CT angiogram of the chest for PE: Pulmonary arteries: Exam is diagnostic to the subsegmental pulmonary arterial level. No filling defects identified to suggest a pulmonary embolus. Other findings: Minimal subpleural atelectasis in the lower lobes. No pneumonia, pleural effusion or pneumothorax. No pulmonary nodules or masses. The central airways are patent. No axillary or mediastinal adenopathy. Heart size is normal. No pericardial effusion. The upper abdomen shows no acute findings. CTA chest with and without contrast for aorta: Noncontrast images show no evidence of intramural hematoma. Mild atherosclerotic plaque in the aortic arch. Postcontrast images show no evidence of aortic aneurysm or dissection. Great vessel origins are widely patent. CTA abdomen and pelvis with and without contrast for aorta: No evidence of aortic aneurysm or dissection. No evidence of hemodynamically significant aortic or arterial stenosis. Single bilateral renal artery origins appear normal. The visualized common, internal and internal iliac arteries are widely patent. The celiac, SMA and NATALY are widely patent. The arterial phase liver is unremarkable. Gallbladder is grossly normal. Fat-containing right upper abdominal ventral hernia with a 1 cm fascial defect seen on axial image #111. The spleen, pancreas and adrenal glands are within normal limits. The kidneys are normal. The visualized bladder is unremarkable. No evidence of a bowel obstruction. Bone windows show degenerative changes in the spine. Impression: CTA chest for PE: No pulmonary embolus or acute intrathoracic disease process seen. CTA chest for aorta: No evidence of acute aortic syndrome. CT abdomen pelvis with for aorta: No evidence of acute aortic syndrome. No acute abnormality seen. Date of Exam: 11/27/17 Ordering Provider: Mick Resendiz DO Type of Exam(s): XR chest 1V Reason for Exam(s): Pain Indication: Mid chest pain this morning PROCEDURE: XR chest 1V: Encounter: Initial Comparison: None FINDINGS: The lungs are clear. There is no abnormal airspace opacity, pleural effusion or pneumothorax identified. The heart size, pulmonary vasculature and mediastinum are within normal limits. 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 IMPRESSION: No acute cardiopulmonary abnormality. History of Present Illness HPI: Jerardo is a 77 year old male who has no known history of cardiac disease who was in bed this morning when he began having back pain which progressed to chest pain. He denies radiation on pain, dyspnea, dizziness, lightheadedness, diaphoresis, or nausea. He moved to his lift chair and pain persisted. After about 1.5 hours he called EMS to transport him to the ED for evaluation. EKG showed slight ST depression in V4, sinus bradycardia and old inferior wall MS. Labs including Troponin were negative. CTA chest for PE and Aorta, and CT abdomen/pelvis showed no evidence of acute abnormality. Dr. Alvarez was contacted and he was admitted to observation for further evaluation. He is seen in his room on the surgical floor. He denies recent illness, fever, chills, cough, sore throat, cough, dyspnea, N/V/D, dysuria. Hospital Course This is a general summary of the patient's hospital course. For more details refer to the complete medical record. Time spent with patient: 25 - 35 minutes Resuscitation Status: Full Code Exam Vital signs: Temperature 98.7 F 11/28/17 07:00 Pulse Rate 56 L 11/28/17 07:01 Respiratory Rate 16 11/28/17 07:00 Blood Pressure 111/80 11/28/17 07:00 Pulse Oximetry 95 11/28/17 07:00 - Constitutional no acute distress, well nourished, cooperative - Routine HEENT Exam Head: Present: normocephalic ENT: Present: mucous membranes moist - Routine Neck Exam Absent: JVD, carotid bruit - Routine Chest/Breast/Axilla Exam Chest wall: Absent: tenderness - Routine Respiratory Exam Present: CTA bilaterally. Absent: rales, wheezes - Routine Cardiovascular Exam Present: RRR, no murmur - Routine Abdominal Exam Present: soft, non tender - Routine Extremities Exam Present: no edema - Routine Skin Exam Present: intact, dry, warm - Routine Neurological Exam Present: alert, oriented X3 - Routine Psychiatric Exam Present: normal affect, normal thought process Results 11/27/17 06:51 11/27/17 06:51 Cardiac Enzymes 11/27/17 11/27/17 Range/Units 13:24 17:54 Troponin I < 0.012 < 0.012 (0-0.12) ng/ml Intake and Output 11/27/17 11/28/17 11/28/17 22:59 06:59 14:59 Intake Total 1000 / 1000 100 / 100 Output Total 1150 / 1150 500 / 500 200 / 200 Balance -150 / -150 -400 / -400 -200 / -200 Intake: Oral 1000 / 1000 100 / 100 Output: Urine 1150 / 1150 500 / 500 200 / 200 Other: Urine Appearance Clear Clear Clear Urine Color Dark Yellow Yellow Straw Urine Odor Normal Normal Normal - Imaging and Cardiology Imaging & Cardiology Narrative: Date of Exam: 11/27/17 Type of Exam(s): US echo doppler complete DATE OF PROCEDURE November 27, 2017 This is a two-dimensional echo with spectral Doppler, color-flow and M-mode. It was obtained in a patient with chest pain. Left atrium is dilated. Left ventricle end-diastolic dimension is normal. Left ventricle wall thickness is increased. LV systolic function is normal with ejection fraction of 55%. Right atrium is normal. Right ventricle is normal. Aortic root dimension is increased. Mitral valve is morphologically normal with bxpt-xi-wqdehqab mitral regurgitation. Aortic valve is a trileaflet structure with no stenosis or insufficiency. Tricuspid valve shows djlf-jk-tpxwablk tricuspid regurgitation with moderate pulmonary hypertension with estimated pulmonary artery systolic pressure of 44. Pulmonary valve shows no pulmonary insufficiency. There is no pericardial effusion. IMPRESSION 1. Left atrial dilation. 2. Left ventricular hypertrophy. 3. Normal LV systolic function with ejection fraction of 55%. 4. Mild aortic root dilation at 3.9 cm. 5. Dpyt-gv-usvjlbgp mitral regurgitation. 6. Ocjw-hz-ewyumkyw tricuspid regurgitation with moderate pulmonary hypertension with estimated pulmonary artery systolic pressure of 44. 11/28/17 10:15 Discharge Plan - Med Rec/Dispo Referrals/Follow Up: Lamont Alvarez MD [Physician] - 2 Weeks Prescriptions: Continue Sertraline [Zoloft] 50 mg PO BID Cyclobenzaprine [Flexeril] 1 tab PO TID Aspirin Chewable [ASA] 81 mg PO DAILY Meloxicam 15 mg PO DAILY - Disposition Discharged Home, Self-Care - Dismissal Complete Discharge Instructions are:: Complete
== END 2017-11-28 10:36 | disposition home or self-care (01) ==
LOC: EDHOLD 06:34 → ED 06:34 → SRG 10:00
PROVIDERS: ADMIT Internal Medicine Cardiovascular Disease; ATTEND Internal Medicine Cardiovascular Disease